=== PATIENT | female | born 1945 | race Caucasian/White ===

== ENCOUNTER 2016-06-08 11:52 | Outpatient (RCR) | payer MEDICARE ==
[2016-06-08 12:07] LABS: MEAN CORPUSCULAR HEMOGLOBIN 28.8 PG (26.0-34.0); MEAN CORPUSCULAR HGB CONC 35.1 g/dL (31.0-37.0); MEAN CORPUSCULAR VOLUME 82 FL (80-100); MEAN PLATELET VOLUME 9.1 FL (6.0-9.5); PLATELET COUNT 197 10^3uL (150-450); WHITE BLOOD COUNT 6.47 10^3uL (4.0-11.0)
[2016-06-08 12:38] LABS: BAND NEUTROPHILS % 0 % (0-6); EOSINOPHILS % 7 % (0-4); LYMPHOCYTES # 1.3 #; MONOCYTES # 0.5 #; MONOCYTES % 8 % (3-11); RBC MORPH NORMAL (NORMAL); SEGMENTED NEUTROPHILS % 62 % (51-67); TOTAL CELLS COUNTED 100
[2016-06-08 12:43] LABS: ALBUMIN 4.5 g/dL (3.4-5.0); ANION GAP 15.5 MEQ/L (3-15); CALCULATED IONIZED CALCIUM 4.7 mg/dL (3.8-4.6); PHOSPHORUS 4.7 mg/dL (2.4-4.9); TOTAL PROTEIN 7.9 g/dL (6.4-8.5)
[2016-08-28 14:17] LABS: MEAN CORPUSCULAR HEMOGLOBIN 28.5 PG (26.0-34.0); MEAN CORPUSCULAR HGB CONC 34.8 g/dL (31.0-37.0); MEAN CORPUSCULAR VOLUME 82 FL (80-100); MEAN PLATELET VOLUME 9.1 FL (6.0-9.5); PLATELET COUNT 190 10^3uL (150-450); WHITE BLOOD COUNT 7.65 10^3uL (4.0-11.0)
[2016-08-28 14:23] LABS: BAND NEUTROPHILS % 1 % (0-6); EOSINOPHILS % 5 % (0-4); LYMPHOCYTES # 1.7 #; MONOCYTES # 0.4 #; MONOCYTES % 6 % (3-11); RBC MORPH NORMAL (NORMAL); SEGMENTED NEUTROPHILS % 66 % (51-67); TOTAL CELLS COUNTED 100
[2016-08-28 14:33] LABS: ALBUMIN 4.6 g/dL (3.4-5.0); ANION GAP 15.3 MEQ/L (3-15); CALCULATED IONIZED CALCIUM 4.2 mg/dL (3.8-4.6); MAGNESIUM* 2.1 mg/dL (1.6-2.3); PHOSPHORUS 4.3 mg/dL (2.4-4.9)
== END 2016-09-06 | disposition home or self-care (01) ==
LOC: LAB 11:52
PROVIDERS: ATTEND Internal Medicine Hematology & Oncology
DX: C50.312 Malignant neoplasm of lower-inner quadrant of left female breast (principal); Z17.0 Estrogen receptor positive status [ER+]
CPT/HCPCS: 36415; 80053; 82306; 83615; 83735; 84100; 85007; 85027; 86300

== ENCOUNTER 2016-12-01 12:01 | Outpatient (RCR) | payer MEDICARE ==
[2016-12-01 12:10] LABS: MEAN CORPUSCULAR HEMOGLOBIN 27.9 PG (26.0-34.0); MEAN CORPUSCULAR VOLUME 82 FL (80-100); PLATELET COUNT 191 10^3uL (150-450); WHITE BLOOD COUNT 6.12 10^3uL (4.0-11.0)
[2016-12-01 12:35] LABS: BAND NEUTROPHILS % 0 % (0-6); EOSINOPHILS % 3 % (0-4); LYMPHOCYTES # 1.2 #; MONOCYTES # 0.2 #; MONOCYTES % 4 % (3-11); RBC MORPH NORMAL (NORMAL); SEGMENTED NEUTROPHILS % 74 % (51-67); TOTAL CELLS COUNTED 100
[2016-12-01 12:38] LABS: ALBUMIN 4.5 g/dL (3.4-5.0); ANION GAP 15.9 MEQ/L (3-15); CALCULATED IONIZED CALCIUM 4.5 mg/dL (3.8-4.6); TOTAL PROTEIN 7.4 g/dL (6.4-8.5)
== END 2016-12-27 19:21 | disposition home or self-care (01) ==
LOC: LAB 12:01
PROVIDERS: ATTEND Internal Medicine Hematology & Oncology
DX: C50.312 Malignant neoplasm of lower-inner quadrant of left female breast (principal); Z17.0 Estrogen receptor positive status [ER+]
CPT/HCPCS: 36415; 80053; 82306; 83615; 83735; 84100; 85007; 85027; 86300